=== PATIENT | female | born 1990 | race Caucasian/White ===

== ENCOUNTER 2019-10-03 01:25 | Emergency (ER) | payer BC, OTHER ==
[~2019-10-03] VITALS: Ht 170.2 cm; Wt 68.5 kg
[2019-10-03 01:30] VITALS: BP 118/57
--- NOTE | 2019-10-03 01:30 | NUR ---
ARRIVAL PATIENT PRESENTS WITH COMPLAINTS OF VAGINAL BLEEDING WHILE . PATIENT REPORTS SHE IS ALMOST 13 WEEKS; LMP 07/08/19. 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 STATES THAT "IT SOAKED THROUGH PANTIES". DENIES ANY BLEEDING AT THIS TIME. DENIES ABDOMINAL PAIN OR OTHER COMPLAINTS. REPORTS THAT SHE CONTACTED HER ASSOCIATE PROFESSOR PHYSICIAN IN [place] AND SHE INFORMED HER TO COME TO ER FOR EVALUATION. VSS. NO SIGNS OF DISTRESS NOTED. MD STANISLAV NOTIFIED.
[2019-10-03 02:01] LABS: BILIRUBIN,URINE NEGATIVE (NEGATIVE); UROBILINOGEN,URINE NORMAL (NEGATIVE)
[2019-10-03 02:02] LABS: BASOPHIL % 0.1 % (0.0-0.2); EOSINOPHIL # 0.1 10^3/uL (0.0-0.2); EOSINOPHIL % 1.5 % (0.0-5.0); LYMPHOCYTES # 2.5 10^3/uL (1.0-4.8); MEAN CORP HGB 31.2 pg (26-34); MONOCYTES # 0.8 10^3/uL (0.3-0.8); MONOCYTES % 8.4 % (5.0-12.0); NEUTROPHIL # 5.8 10^3/uL (1.8-7.7); NEUTROPHILS % 62.7 % (41.0-85.0); RED CELL DISTRIBUTION WIDTH 12.2 % (11.5-14.5)
--- NOTE | 2019-10-03 02:02 | ER.PDOC ---
General Chief Complaint: less 20 wks Stated Complaint: <20 WKS,BLEEDING Time seen by MD: 01:45 Source: patient Exam Limitations: no limitations History of Present Illness Initial Comments 29 yr old female came to ER complaining of abnormal vaginal bleeding that started today. She is 20 weeks and she had an OB visit a week ago. No other complaints reported. Timing/Duration: just prior to arrival Severity/Quality: mild Vaginal Bleed: abnormal bleeding LMP (females 10-50): Test: clinic Care: clinic Associated Symptoms: denies symptoms Allergies: Coded Allergies: No Known Drug Allergies (Verified Allergy, Unknown, 10/03/19) Past Medical History Medical History: no pertinent history Surgical History: no surgical history Social History Alcohol Use: none Drug Use: none Review of Systems Constitutional: denies no symptoms reported, denies see HPI, denies chills, denies diaphoresis, denies fever, denies malaise, denies weakness, denies other EENTM: denies no symptoms reported, denies see HPI, denies eye pain, denies blurred vision, denies tearing, denies double vision, denies ear pain, denies ear discharge, denies nose pain, denies nose congestion, denies throat pain, denies throat swelling, denies mouth pain, denies mouth swelling, denies other Respiratory: denies no symptoms reported, denies see HPI, denies cough, denies orthopnea, denies shortness of breath, denies stridor, denies wheezing, denies other Cardiovascular: denies no symptoms reported, denies see HPI, denies chest pain, denies edema, denies palpitations, denies syncope, denies other Gastrointestinal: denies no symptoms reported, denies see HPI, denies abdominal pain, denies constipation, denies diarrhea, denies nausea, denies vomiting, denies other Genitourinary: see HPI Musculoskeletal: denies no symptoms reported, denies see HPI, denies back pain, denies gout, denies joint pain, denies joint swelling, denies muscle pain, denies muscle stiffness, denies neck pain, denies other Skin: denies no symptoms reported, denies see HPI, denies change in color, denies change in hair/nails, denies dryness, denies lesions, denies lumps, denies rash, denies other Psychiatric/Neurological: denies no symptoms reported, denies see HPI, denies anxiety, denies depressed, denies emotional problems, denies headache, denies numbness, denies paresthesia, denies pre-existing deficit, denies seizure, denies tingling, denies tremors, denies weakness, denies other Endocrine: denies no symptoms reported, denies see HPI, denies excessive sweating, denies flushing, denies intolerance to cold, denies intolerance to heat, denies increased hunger, denies increased thrist, denies increased urine, denies unexplained weight gain, denies unexplaned weight loss, denies other Hematologic/Lymphatic: denies no symptoms reported, denies see HPI, denies anemia, denies blood clots, denies easy bleeding, denies easy bruising, denies swollen glands, denies other All Other Systems: Reviewed and Negative Physical Exam General Appearance: No Apparent Distress, WD/WN EENT: eyes nml inspection, nml ENT inspection, pharynx nml Neck: nml inspection, non-tender Cardiovascular/Respiratory: Regular Rate, Rhythm, No M/R/G, Normal Peripheral Pulses, No JVD, Normal Breath Sounds, No Respiratory Distress Abdomen: Normal Bowel Sounds, Non Tender, Soft, No Organomegaly, No Pulsatile Mass Rectal: Normal Exam Back: nml inspection Pelvic: External Exam Normal, Speculum Exam Normal, Bimanual Exam Normal, No Cerv. 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 (10/03/19 01:46) Us Tv-Ob (10/03/19 01:46) Urinalysis (10/03/19 01:46) Hcg Urine (10/03/19 01:46) Hcg, Quantitative (10/03/19 02:18) Us Preg Before 14 Wks (10/03/19 ) Vital Signs Date Time Temp Pulse Resp B/P (MAP) Pulse Ox O2 Delivery O2 Flow Rate FiO2 10/03/19 01:30 97.5 75 18 10/03/19 01:30 97.5 75 18 100 10/03/19 01:30 97.5 75 18 118/57 (77) 100 Room Air Laboratory Tests Test 10/03/19 01:30 10/03/19 01:53 Urine Collection Type VOID Urine Color YELLOW (YELLOW) Urine Appearance CLEAR (CLEAR) Urine Bilirubin NEGATIVE MG/DL (NEGATIVE) Urine Ketones NEGATIVE (NEGATIVE) Urine Specific [place] 1.015 (1.005-1.035) Urine pH 6.5 (5.0-6.0) Urine Protein NEGATIVE (NEGATIVE) Urine Urobilinogen NORMAL (NEGATIVE) Urine Nitrate NEGATIVE (NEGATIVE) Urine Leukocyte Esterase NEGATIVE (NEGATIVE) Urine Blood 25 1+ (NEGATIVE) H Urine RBC 0-2 RBC/HPF (NONE SEEN) Urine WBC 0-2 WBC/HPF (0-2) Urine Squamous Epithelial Cells RARE #/HPF (FEW) Urine Bacteria NONE SEEN (NONE SEEN) Urine Glucose NORMAL (NEGATIVE) Urine HCG, Qualitative POSITIVE (NEGATIVE) White Blood Count 9.3 10^3/uL (4.5-11.0) Red Blood Count 3.94 10^6/uL (4.00-5.20) L Hemoglobin 12.3 g/dL (12.0-15.0) Hematocrit 35.6 % (36.0-46.0) L Mean Corpuscular Volume 90.4 fL (78-100) Mean Corpuscular Hemoglobin 31.2 pg (26-34) Mean Corpuscular Hemoglobin Concent 34.6 g/dL (33-37) Red Cell Distribution Width 12.2 % (11.5-14.5) Platelet Count 268 10^3/uL (150-400) Mean Platelet Volume 9.8 fL (7.8-11.0) Neutrophils (%) (Auto) 62.7 % (41.0-85.0) Lymphocytes (%) (Auto) 27.0 % (24.0-44.0) Monocytes (%) (Auto) 8.4 % (5.0-12.0) Neutrophils # (Auto) 5.8 10^3/uL (1.8-7.7) Lymphocytes # (Auto) 2.5 10^3/uL (1.0-4.8) Monocytes # (Auto) 0.8 10^3/uL (0.3-0.8) Absolute Immature Granulocyte (auto 0.03 10^3 u/L (0-2) Immature Granulocytes % 0.30 % (0.00-0.50) Eosinophils % 1.5 % (0.0-5.0) Basophils % 0.1 % (0.0-0.2) Basophils # 0.0 10^3/uL (0.0-0.1) Eosinophil Count 0.1 10^3/uL (0.0-0.2) Prothrombin Time 10.1 SEC (9.4-11.5) Prothrombin Time INR (Non-Therap) 1.0 Activated Partial Thromboplast Time 25.7 SEC (24.67-30.72) Sodium Level 140 mmol/L (132-145) Potassium Level 3.6 mmol/L (3.6-5.2) Chloride Level 103.0 mmol/L (96-109) Carbon Dioxide Level 28.9 mmol/L (20.0-32) Anion Gap 11.7 Blood Urea Nitrogen 9 mg/dL (7-18) Creatinine 0.53 mg/dL (0.59-1.40) L Estimated GFR () 166.2 (>/=60) BUN/Creatinine Ratio 16.0 Glucose Level 76 mg/dL (70-110) Calcium Level 8.9 mg/dL (8.4-10.5) Total Bilirubin < 0.1 mg/dL (0.2-1.0) L Aspartate Amino Transferase (AST) 18 U/L (0-35) Alanine Aminotransferase (ALT) 20 U/L (12-78) Alkaline Phosphatase 25 U/L (50-136) L Total Protein 7.0 g/dL (6.4-8.2) Albumin 3.5 g/dL (3.4-5.0) Globulin 3.5 Human Chorionic Gonadotropin, Quant 98149 mIU/mL Progress Progress No active bleeding. labs were at baseline. USG showed Viable 12 week 3 days. 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
[2019-10-03 02:09] LABS: APPEARANCE,URINE CLEAR (CLEAR); UA COLOR YELLOW (YELLOW)
--- NOTE | 2019-10-03 02:11 | NUR ---
ULTRASOUND JANNY PAGED FOR ULTRASOUND AT THIS TIME.
[2019-10-03 02:15] VITALS: BP 119/58
[2019-10-03 02:17] LABS: ALANINE AMINOTRANSFERASE(ML) 20 U/L (12-78); ALKALINE PHOSPHATASE 25 U/L (50-136); ASPARTATE AMINO TRANSFERASE 18 U/L (0-35); CALCIUM 8.9 mg/dL (8.4-10.5); CARBON DIOXIDE 28.9 mmol/L (20.0-32); GLUCOSE 76 mg/dL (70-110)
--- NOTE | 2019-10-03 02:32 | NUR ---
ULTRASOUND PATIENT IS BEING TAKEN FOR ULTRASOUND AT THIS TIME VIA WHEELCHAIR BY JANNY. NO SIGNS OF DISTRESS NOTED.
--- NOTE | 2019-10-03 03:09 | NUR ---
ULTRASOUND PATIENT IS BACK FROM ULTRASOUND. NO SIGNS OF DISTRESS NOTED.
[2019-10-03 03:15] VITALS: BP 122/62
--- NOTE | 2019-10-03 03:58 | DIREP ---
PROCEDURE:US OB 1ST TRI - TV COMPARISON:None. INDICATIONS:vaginal bleeding TECHNIQUE:Transabdominal and endovaginal pelvic ultrasound images were obtained. Endovaginal images were obtained to optimally evaluate the and maternal adnexal structures. FINDINGS: GESTATIONAL SAC:Present and normal appearing. POLE:Present and normal appearing. CRL = 5.9 cm, corresponding to an EGA of 12 weeks 3 days. YOLK SAC:Present. CARDIAC ACTIVITY:Present. 153 bpm. UTERUS:Uterus measures 11.6 x 5.7 x 9.2 cm OVARIES:Normal in size, shape, and echogenicity. The right measures 3.5 x 2.3 x 3.0 cm. The left measures 3.0 x 1.9 x 2.3 cm. There are no adnexal masses. CUL-DE-SAC:No free fluid seen. US SUMMER:April 13, 2020 OTHER:Survey of the placental anatomic structure and amniotic fluid could not be performed because of gestational age (<14 weeks). CONCLUSION: Single viable intrauterine gestation with crown-rump length corresponding to 12 week 3 day gestation, gestational age is congruent with dating by LMP. Dictated by: Bong Kohli M.D. on 10/03/2019 at 03:54 AM
[2019-10-03 04:15] VITALS: BP 116/58
== END 2019-10-03 04:18 | disposition home or self-care (01) ==
LOC: ER 01:25
DX: O20.9 Hemorrhage in early pregnancy, unspecified (principal); Z3A.12 12 weeks gestation of pregnancy
CPT/HCPCS: 36415; 76801; 76817; 80053; 81000; 81025; 84702; 85025; 85610; 85730; 99284; 99285